=== PATIENT | male | born 1945 | race Caucasian/White ===

== ENCOUNTER 2020-05-07 19:06 | Inpatient (IN) ==
[2020-05-07] MEDS ORDERED: NITROGLYCERIN DRIP 50 MG/250 ML BOTTLE IV SCH (20:00)
[2020-05-07] MEDS ORDERED: HEPARIN DRIP 25,000 UNITS/500 ML PREMIX IV SCH (20:00)
[2020-05-07 20:08] LABS: Basophils % 0.3 % (0.0-0.8); Eosinophils # 0.1 10*3/uL (0.0-0.87); Eosinophils % 0.7 % (0.00-10.9); Hematocrit 48.7 VOL% (42.0-52.0); Hemoglobin 16.9 GM/DL (14.0-18.0); Immature Granulocytes % 0.4 %; Immature Granulocytes Absolute 0.05 #; Lymphocytes # 2.9 10*3/uL (1.4-4.0); Mean Corpuscular HGB Conc 34.7 GM/DL (32-36); Mean Corpuscular Volume 87.4 FL (87-102); Mean Platelet Volume 12.6 FL (9.6-12.0); Monocytes % 10.2 % (1.7-12.7); Neutrophils % 63.4 % (38.7-73.9); Platelet Count 182 T/CUMM (130-400); Red Blood Count 5.57 MC/CUMM (3.8-5.5); Red Cell Distribution Width 12.4 % (9.3-17.3); White Blood Count 11.5 T/CUMM (4-12)
[2020-05-07] MEDS ORDERED: carvediloL 3.125 MG TABLET PO STA ×2 (20:15→23:54)
[2020-05-07 20:19] LABS: Calcium 9.4 MG/DL (8.5-10.1); Osmolality,Calculated 271.4 MOS/KG (273-304)
[2020-05-07] MEDS ORDERED: ATORVASTATIN 40 MG TABLET PO STA (23:54)
[2020-05-07] MEDS ORDERED: ONDANSETRON 4 MG/2 ML VIAL IV PRN (23:54)
[2020-05-07] MEDS ORDERED: INFLUENZA VIRUS VACCINE 0.5 ML SYRINGE IM ONE (23:58)
[2020-05-08] MEDS ORDERED: carvediloL 3.125 MG TABLET PO SCH
[2020-05-08 03:24] LABS: Basophils # 0.1 10*3/uL (0.0-0.2); Basophils % 0.5 % (0.0-0.8); Eosinophils # 0.1 10*3/uL (0.0-0.87); Eosinophils % 1.3 % (0.00-10.9); Hematocrit 45.8 VOL% (42.0-52.0); Hemoglobin 15.5 GM/DL (14.0-18.0); Immature Granulocytes % 0.3 %; Immature Granulocytes Absolute 0.03 #; Lymphocytes # 2.7 10*3/uL (1.4-4.0); Lymphocytes % 27.2 % (21.2-54.2); Mean Corpuscular HGB Conc 33.8 GM/DL (32-36); Mean Corpuscular Volume 88.2 FL (87-102); Mean Platelet Volume 12.4 FL (9.6-12.0); Monocytes % 10.7 % (1.7-12.7); Platelet Count 179 T/CUMM (130-400); Red Blood Count 5.19 MC/CUMM (3.8-5.5); Red Cell Distribution Width 12.4 % (9.3-17.3)
[2020-05-08] MEDS ORDERED: HEPARIN 5,000 UNIT/1 ML VIAL IV ONE (03:45)
[2020-05-08 04:05] LABS: Calcium 8.9 MG/DL (8.5-10.1); Osmolality,Calculated 275.2 MOS/KG (273-304)
[2020-05-08] MEDS ORDERED: TIROFIBAN 0 MCG in PREMIX 1 EACH IV ONE (07:41)
[2020-05-08] MEDS ORDERED: TIROFIBAN IV ONE (07:42)
[2020-05-08] MEDS ORDERED: TIROFIBAN 5,000 MCG/100 ML PREMIX IV SCH (08:00)
[2020-05-08] MEDS: TIROFIBAN 5,000 MCG/100 ML PREMIX IV SCH ×3 (08:21→14:41)
[2020-05-08] MEDS ORDERED: ASPIRIN 325 MG TABLET PO SCH (09:00)
[2020-05-08] MEDS ORDERED: MAGNESIUM SULF RIDER 2 GM in PREMIX 1 EACH IV PRN (09:05)
[2020-05-08] MEDS ORDERED: POTASSIUM CHLORIDE RIDER 10 MEQ in PREMIX 1 EACH IV PRN (09:05)
[2020-05-08] MEDS ORDERED: INSULIN REGULAR 100 UNIT/ML ONE (09:13)
[2020-05-08] MEDS: INSULIN REGULAR 100 UNIT/ML SUBCUT SCH ×4 (09:19→21:07)
[2020-05-08] MEDS: ROSUVASTATIN 20 MG TABLET PO SCH (09:19)
[2020-05-08] MEDS: carvediloL 3.125 MG TABLET PO SCH ×2 (09:19→21:04)
[2020-05-08] MEDS ORDERED: diphenhydrAMINE CAP 25 MG CAPSULE PO ONE (12:02)
[2020-05-08] MEDS ORDERED: DIAZEPAM 5 MG TABLET PO ONE (12:02)
[2020-05-08] MEDS ORDERED: HYDROmorphone 2 MG/1 ML VIAL ONE (12:25)
[2020-05-08] MEDS ORDERED: MIDAZOLAM 2 MG/2 ML VIAL ONE (12:26)
[2020-05-08] MEDS ORDERED: HEPARIN 5,000 UNIT/1 ML VIAL ONE (12:45)
[2020-05-08] MEDS ORDERED: PRASUGREL 10 MG TABLET ONE (14:07)
[2020-05-08 15:55] LABS: CKMB % 2.4 %
[2020-05-08 16:01] LABS: Troponin I 27.8 NG/ML (0.00-0.045)
[2020-05-08] MEDS ORDERED: ATORVASTATIN 20 MG TABLET PO SCH (21:00)
[2020-05-09 03:45] LABS: Basophils % 0.4 % (0.0-0.8); Eosinophils # 0.1 10*3/uL (0.0-0.87); Eosinophils % 1.2 % (0.00-10.9); Hematocrit 44.8 VOL% (42.0-52.0); Hemoglobin 15.2 GM/DL (14.0-18.0); Immature Granulocytes % 0.3 %; Immature Granulocytes Absolute 0.03 #; Lymphocytes # 1.9 10*3/uL (1.4-4.0); Lymphocytes % 20.9 % (21.2-54.2); Mean Corpuscular HGB Conc 33.9 GM/DL (32-36); Mean Corpuscular Volume 88.5 FL (87-102); Mean Platelet Volume 12.1 FL (9.6-12.0); Monocytes % 10.9 % (1.7-12.7); Neutrophils % 66.3 % (38.7-73.9); Platelet Count 161 T/CUMM (130-400); Red Blood Count 5.06 MC/CUMM (3.8-5.5); Red Cell Distribution Width 12.3 % (9.3-17.3); White Blood Count 8.9 T/CUMM (4-12)
[2020-05-09 04:04] LABS: Osmolality,Calculated 273.2 MOS/KG (273-304)
[2020-05-09 04:19] LABS: CKMB % 2.6 %
[2020-05-09 04:20] LABS: Troponin I 22.5 NG/ML (0.00-0.045)
[2020-05-09] MEDS: PRASUGREL 10 MG TABLET PO SCH (08:14)
[2020-05-09] MEDS: ROSUVASTATIN 20 MG TABLET PO SCH (08:14)
[2020-05-09] MEDS: ASPIRIN EC 81 MG TABLET PO SCH (08:14)
[2020-05-09] MEDS: INSULIN REGULAR 100 UNIT/ML SUBCUT SCH ×4 (08:14→20:54)
[2020-05-09] MEDS: carvediloL 3.125 MG TABLET PO SCH (08:14)
[2020-05-09] MEDS: SACUBITRIL/VALSARTAN 49-51 MG TABLET PO SCH ×2 (08:42→20:54)
[2020-05-09] MEDS ORDERED: INSULIN NPH/REGULAR 70/30 100 UNIT/ML SUBCUT SCH (16:30)
[2020-05-10 08:10] VITALS: BP 107/67
[2020-05-10] MEDS: INSULIN REGULAR 100 UNIT/ML SUBCUT SCH ×2 (08:22→11:39)
[2020-05-10] MEDS ORDERED: carvediloL 6.25 MG TABLET PO SCH (09:00)
[2020-05-10] MEDS: SACUBITRIL/VALSARTAN 49-51 MG TABLET PO SCH (09:15)
[2020-05-10] MEDS: ROSUVASTATIN 20 MG TABLET PO SCH (09:16)
[2020-05-10] MEDS: PRASUGREL 10 MG TABLET PO SCH (09:17)
[2020-05-10] MEDS: ASPIRIN EC 81 MG TABLET PO SCH (09:17)
== END 2020-05-10 12:05 | disposition home or self-care (01) | DRG 247 ==
LOC: N.ED 19:06 → N.EDINP 21:58 → N.ICU 22:30 → N.TELEN 05-09 13:46
PROVIDERS: ADMIT Internal Medicine Cardiovascular Disease; ATTEND Internal Medicine Cardiovascular Disease
PROC: CLCCHCL (ICD-10-PCS; 2020-05-08 12:45)